=== PATIENT | male | born 1980 | race Caucasian/White ===

== ENCOUNTER 2023-12-07 15:45 | Emergency (ER) | payer BC, SELFPAY ==
[2023-12-07 15:57] VITALS: BP 134/99
--- NOTE | 2023-12-07 18:43 | ED.GENMED ---
History of Present Illness
General
Chief Complaint: Swelling
Source: patient
Exam Limitations: none
Time Seen by Provider: 12/07/23 17:42
History of Present Illness
History of Present Illness:
43-year-old male started with left calf swelling and pain starting yesterday. No trauma. Some mild fever and chills yesterday. Concerned about a DVT. No chest pain or shortness of breath.
Past History
Past History
ED Past Medical History: None
Review of Systems
Review of Systems
All Other Systems: Not applicable
Constitutional: Reports fever (Subjective) and chills
Phy Exam
Physical Exam
Physical Exam:
General: Nontoxic appearing in no distress
Skin: Warm and dry, no rash
Neuro: Alert, nontoxic, grossly nonfocal
Psychiatric: Good eye contact and appropriate
Musculoskeletal: Erythema warmth to the left lower extremity medially. Approximately 20 cm x 15 cm. No open wound. No drainage. No cord. No thigh tenderness. Good distal pulses and color.
Course
Orders/Labs/Results
Orders:
Orders
12/07/23 16:01
US Legs, Left [US Periph Venous LOWER Ext LT] Urgent
Comment:
Reason For Exam: pain swelling
12/07/23 18:29
Lyme Progressive Urgent
Doxycycline [Vibramycin] 100 mg PO NOW STA
Vital Signs
Initial and Last Documented VS:
Initial Vital Signs
Temp Pulse Resp BP Pulse Ox
99.4 F 104 20 134/99 99
12/07/23 15:57 12/07/23 15:57 12/07/23 15:57 12/07/23 15:57 12/07/23 15:57
Last Documented Vital Signs
Temp Pulse Resp BP Pulse Ox
99.4 F 104 20 134/99 99
12/07/23 15:57 12/07/23 15:57 12/07/23 15:57 12/07/23 15:57 12/07/23 15:57
*Radiology
Radiology exam reviewed: radiology read reviewed (Negative ultrasound)
*Pulse Oximetry
Patient hypoxic: no
*Critical Care Note
Total Time (30-74mins, 75-104mins- exclusive of procedures): Not Applicable
Update Note
Update Note:
Most consistent with a local cellulitis. Patient is nontoxic. Patient is healthy. No for him. We will do a Lyme titer for completeness although doubt ECM. Discharged to follow-up
ED Attending Note
-
Portions of this chart may have been created with voice recognition software.� Occasional wrong word or��sound alike� substitutions may have occurred due to the inherent limitations of voice recognition software.
Discharge Plan
Departure
Patient Disposition: Home (Routine Discharge)
Date of Disposition: 12/07/23
Time of Disposition: 18:30
Patient with high blood pressure during this ER visit?: Yes
Discharge Problem:
Cellulitis left lower extremity
Instructions: Cellulitis (Skin Infection), Adult ED, BLOOD PRESSURE
Prescriptions:
New
doxycycline hyclate 100 mg capsule
100 mg PO BID 10 Days Qty: 20 0RF
Referrals:
Giana Ruvalcaba PA [Family Provider] - Follow up in 2-3 days
Activity Restrictions/Additional Instructions:
Your prescription was sent to your pharmacy the Lyme titer should be back in 3 to 4 days
As we discussed, return sooner with increased redness swelling fever chills or any other concerning symptoms
Interventions
Interventions:
*Risk Screen - Suicide Last Done: 12/07/23 15:57
*General Assessment Last Done: 12/07/23 15:57
*Neglect/Abuse Screening Last Done: 12/07/23 15:57
Discharge Date and Time
Print Language: SAMMARINESE
[2023-12-07] MEDS: VIBRAMYCIN 100 MG PO (19:02)
[2023-12-10 16:02] LABS: Lyme Antibody Screen, EIA Negative (Negative)
== END 2023-12-07 19:09 | disposition home or self-care (01) ==
LOC: EMR 15:45
PROVIDERS: EMERGENCY PHYSICIAN Emergency Medicine; FAMILY PHYSICIAN Physician Assistant Medical
DX: L03.116 Cellulitis of left lower limb (principal)
CPT/HCPCS: 99284; 86618; 93971

== ENCOUNTER 2025-01-15 12:00 | Emergency (ER) | payer BC, SELFPAY ==
[2025-01-15 12:05] VITALS: BP 171/117
[2025-01-15 12:19] LABS: Hematocrit 44.2 % (39.0-52.0); Hemoglobin 15.5 g/dL (13.0-18.0); Mean Corp Hgb Conc. 35.1 g/dL (33.0-37.0); Mean Corpuscular Volume 86.5 fL (80.0-94.0); Nucleated Red Blood Cells % 0 % (-); Platelet Count 224 10^3/uL (130-400); Red Cell Dist. Width 12.1 % (11.5-14.5)
[2025-01-15 12:40] LABS: ALT (SGPT) 23 U/L (0-50); AST (SGOT) 21 U/L (17-59); Albumin 5.3 g/dl (3.5-5.0); Alkaline Phosphatase 70 U/L (38-126); Blood Urea Nitrogen 16 mg/dl (9-20); Calcium 9.8 mg/dl (8.4-10.2); Carbon Dioxide 25 mmol/L (22-30); Chloride 104 mmol/L (98-107); Glucose 120 mg/dl (70-99); Potassium 4.3 mmol/L (3.5-5.1); Sodium 138 mmol/L (135-145); Total Protein 8.0 g/dl (6.3-8.2); eGFR > 60.00
--- NOTE | 2025-01-15 13:31 | ED.GENMED ---
History of Present Illness
General
Chief Complaint: Dizziness
Source: patient
Exam Limitations: none
Time Seen by Provider: 01/15/25 13:19
Nursing documentation reviewed up to this point in time: agreed with
History of Present Illness
History of Present Illness:
44-year-old male with no reported chronic medical issues presents to the emergency department for evaluation of dizziness. Patient reports that symptoms have been intermittent for the past few days. He reports a lightheaded sensation that is most
notable when changing position. 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 He has not had any
chest pain or shortness of breath. He denies any palpitations although last month he says he was having some palpitations in the setting of alcohol use for which he scheduled an appoint with his primary doctor (this is upcoming on Sunday). He
discontinued alcohol and has not had palpitations since. He denies any associated headache. Denies any nausea, vomiting. He denies any focal weakness, numbness or any other acute complaints. He does note that although he does not take any
medications or have any documented chronic medical history he has been noting high blood pressures recently and is planning to discuss with his primary doctor whether he need to start medicine as there is a strong family history of high blood
pressure in his family. He says today his blood pressure was in the 140s and on arrival here read in the 170s.
Past History
Past History
ED Past Medical History: None
Review of Systems
Review of Systems
All Other Systems: ROS reviewed and negative except as documented in HPI and ROS
Constitutional: Denies fever
Respiratory: Denies cough or trouble breathing
Cardiac: Denies chest pain or palpitations
ABD/GI: Denies abdominal pain, nausea or vomiting
: Denies flank pain
Musculoskeletal: Denies neck pain or back pain
Neurological: Reports dizzy; Denies headache, weakness or numbness
Phy Exam
Physical Exam
Physical Exam:
General: Awake, alert, oriented x3; no acute distress
Head: Normocephalic, atraumatic
Eyes: Conjunctiva normal, EOMI without nystagmus, pupils equal round and reactive to light bilaterally
Throat: Airway intact, handling secretions
Neck: Trachea midline, supple without meningismus
Lungs: Clear to auscultation bilaterally, no wheezing, rales, rhonchi
Heart: Tachycardia with regular rhythm, no murmurs, gallops, or rubs
Abd: Soft, non distended, nontender
Neuro: Cranial nerves intact, speech fluid without dysarthria or aphasia, no limb ataxia, ambulatory without ataxia, motor and sensory intact in all extremities
Extremities: No edema in extremities, equal pulses in all extremities
Scores
Heart Failure Risk
Heart Failure Risk Score: Not Applicable
Heart Score for Chest Pain Patients
STEMI patient?: Not applicable
Withdrawal Assessment of Alcohol
Withdrawal Assessment Completed?: Not applicable
Course
Orders/Labs/Results
Orders:
Orders
01/15/25 12:10
Electrocardiogram (*1) Urgent
Reason for Study: Vertigo / Dizzy
EKG- Treatment ONCE
01/15/25 12:15
Complete Blood Count/With Diff Urgent
Comprehensive Metabolic Panel Urgent
01/15/25 13:21
CT Head W/o Iv Contrast Urgent
Comment:
Reason For Exam: dizziness, severe HTN
01/15/25 13:31
0.9% Sodium Chloride 1000 ml [Nss] 1,000 ml IV BOLUS
01/15/25 13:38
TSH Reflex To Free T4 Urgent
Troponin I Urgent
Abnormal Lab Results
01/15/25
12:15
Lymphocytes % 17.8 L %
(20.5-51.1)
Glucose 120 H mg/dl
(70-99)
Albumin 5.3 H g/dl
(3.5-5.0)
01/15/25 12:15
01/15/25 12:15
Vital Signs
Initial and Last Documented VS:
Initial Vital Signs
Temp Pulse Resp BP Pulse Ox
36.6 C 105 18 171/117 99
01/15/25 12:05 01/15/25 12:05 01/15/25 12:05 01/15/25 12:05 01/15/25 12:05
Last Documented Vital Signs
Temp Pulse Resp BP Pulse Ox
36.6 C 98 16 147/96 99
01/15/25 12:05 01/15/25 13:40 01/15/25 14:00 01/15/25 13:33 01/15/25 13:35
MDM/Problems Addressed
Differential Diagnosis Includes:
Dehydration, anemia, electrolyte derangement, dysrhythmia, dysautonomia/orthostatic symptoms; no murmurs to suggest valvular disease, symptoms as described not consistent with vertigo/posterior circulation symptoms
MDM/Problems Addressed:
44-year-old male presents for evaluation of positional lightheadedness for the past few days. Hypertensive in triage did improve by my assessment, mild tachycardia otherwise normal vitals. Physical exam as above. He does admit to working outside
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 His EKG shows sinus tachycardia with no QT prolongation, no Brugada, normal QTc, no ectopy. Will plan to check labs including a CBC and a CMP. Check CT head given his
marked hypertension although patient admits to feeling somewhat anxious, to the emergency room which I think is the main cdl a driver of this. Will provide some IV fluids. Monitor on telemetry. Reassess after the above.
Labs reviewed: CBC shows no anemia, CMP marginal hyperglycemia but no other clinically significant abnormalities. Troponin undetectable. CT head negative for any acute abnormalities. Vital signs have improved including essentially normalized
blood pressure. Suspect likely symptoms from dehydration and advised to increase fluid intake. Stable for discharge to follow-up with primary care physician next Sunday as scheduled. Also provided cardiology referral given his reported
palpitations last month. Patient feels comfortable with this plan. Spoke about return precautions all questions answered.
Acute Exacerbation and/or Progression of Chronic Illness:
Acute hypertensive
Acute Exacerbation and/or Progression of Chronic Illness: HTN
*Radiology
Radiology exam reviewed: radiology read reviewed
*Pulse Oximetry
SaO2: 99
Oxygen Mode of Delivery: Room air
Patient hypoxic: no (99%)
*EKG
Interpreted by ED Provider?: Yes
Heart Rate: 108
Rate: tachycardiac
Rhythm: sinus and sinus tachycardia
Rawson: normal axis
Interval: normal interval
QRS Pattern: normal QRS
Ischemia: no ischemia
*Critical Care Note
Total Time (30-74mins, 75-104mins- exclusive of procedures): Not Applicable
Data Reviewed
Source: patient
ED Attending Note
-
Portions of this chart may have been created with voice recognition software.� Occasional wrong word or��sound alike� substitutions may have occurred due to the inherent limitations of voice recognition software.
Discharge Plan
Departure
Patient Disposition: Home (Routine Discharge)
Date of Disposition: 01/15/25
Time of Disposition: 15:06
Patient with high blood pressure during this ER visit?: Yes
Discharge Problem:
Dizziness
Instructions: Dizziness, BLOOD PRESSURE
Prescriptions:
No Action
doxycycline hyclate 100 mg capsule
100 mg PO BID 10 Days Qty: 20 0RF
Referrals:
iGana Ruvalcaba PA [Family Provider, Family Practice] - Keep scheduled appt
Chris Galloway MD [Active, Cardiology] - Call in 1-3 days for appt
Referral Note: Cardiology
Activity Restrictions/Additional Instructions:
Thank you for visiting the Emergency Department at [facility].
1. Please schedule a follow up appointment as directed. Call first thing tomorrow morning to make an appointment.
2. If indicated, please take your medications as instructed and indicated on discharge paperwork.
3. If any of your symptoms do not improve, or persist, or become more severe within 6-12 hours, please return to the emergency department for further care.
4. Please return to the emergency department if you develop a headache, neck pain/stiffness, fever greater than 100.4F, chest pain, shortness of breath, persistent nausea, vomiting, slurred speech, difficulty walking, numbness/tingling, weakness,
signs of infection or any other symptoms that are worrisome to you.
Please call [phone] if you have any questions.
Interventions
Interventions:
*Risk Screen - Suicide Last Done: 01/15/25 12:08
*General Assessment Last Done: 01/15/25 12:08
*Neglect/Abuse Screening Last Done: 01/15/25 12:08
*ED- Fall Risk Assessment Last Done: 01/15/25 13:11
*ED COVID-19 Vaccine History Last Done: 01/15/25 12:08
ED- Neurological Assessment Last Done: 01/15/25 13:10
ED Swallowing Screen Last Done: 01/15/25 13:31
Discharge Date and Time
Print Language: WELSH
[2025-01-15 13:33] VITALS: BP 147/96
[2025-01-15] MEDS: NSS 1000 IV (13:38)
[2025-01-15 14:11] LABS: Troponin I < 0.012 ng/ml
[2025-01-15 15:13] VITALS: BP 136/91
== END 2025-01-15 15:18 | disposition home or self-care (01) ==
LOC: EMR 12:00
PROVIDERS: Emergency Medicine; EMERGENCY PHYSICIAN Emergency Medicine; FAMILY PHYSICIAN Physician Assistant Medical
DX: R42 Dizziness and giddiness (principal); I10 Essential (primary) hypertension; R00.0 Tachycardia, unspecified
CPT/HCPCS: 99284; 96360; 70450; 80053; 84443; 84484; 85025; 93005